=== PATIENT | female | born 1990 | race Caucasian/White ===

== ENCOUNTER 2022-06-09 04:13 | Emergency (ER) | payer OTHER ==
[~2022-06-09] VITALS: Ht 162.6 cm; Wt 134.0 kg
[2022-06-09 05:18] LABS: Basophils # (auto) 0 10 ^3/uL (0-0.2); Basophils % (auto) 0.8 % (0.0-2.0); Eosinophils # (auto) 0.1 10 ^3/uL (0-0.8); Hematocrit 39.5 % (36.0-46.0); Hemoglobin 13.4 g/dL (12.2-16.2); Lymphocytes # (auto) 1.3 10 ^3/uL (0.4-5.4); Lymphocytes % (auto) 26.4 % (10.0-50.0); Mean Corpuscular Hemoglobin 28.9 pg (28.0-32.0); Monocytes # (auto) 0.8 10 ^3/uL (0-1.3); Monocytes % (auto) 16.2 % (0.0-12.0); Neutrophils # (auto) 2.6 10 ^3/uL (1.6-8.6); Neutrophils % (auto) 54.6 % (37.0-80.0); Nucleated Red Blood Cells % 0.3 %; Red Blood Cells 4.64 10^6/uL (4.0-5.20); Red Cell Distribution Width 12.5 % (11.8-14.3); White Blood Cell 4.8 10^3/uL (4.4-10.8)
[2022-06-09 05:50] LABS: Urine Bacteria FEW /hpf (None Seen); Urine Blood Negative /uL (Negative); Urine Specific Gravity 1.002 (1.001-1.035); Urine WBC <1 /hpf (0 - 5)
[2022-06-09 06:15] LABS: Albumin 3.7 g/dL (3.4-5.0); BUN/Creatinine Ratio 11.3; Bilirubin, Total 0.5 mg/dL (0.2-1.0); Total Protein 7.5 g/dL (6.4-8.2)
[2022-06-09 08:15] VITALS: BP 112/57
== END 2022-06-09 09:01 | disposition home or self-care (01) ==
LOC: ER 04:13
DX: K52.1 Toxic gastroenteritis and colitis (principal); F17.210 Nicotine dependence, cigarettes, uncomplicated
CPT/HCPCS: 36415; 80053; 81001; 83690; 84702; 85025